=== PATIENT | female | born 2005 | race Two or more races ===

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

== ENCOUNTER 2024-06-19 23:26 | Emergency (ER) | payer OTHER | END 2024-06-20 00:02 | disposition home or self-care (01) | LOC: ERS 23:26 | DX: O99.891 Other specified diseases and conditions complicating pregnancy (principal); R10.9 Unspecified abdominal pain; O24.419 Gestational diabetes mellitus in pregnancy, unspecified control; W01.0XXA Fall on same level from slipping, tripping and stumbling without subsequent striking against object, initial encounter; Z3A.32 32 weeks gestation of pregnancy | CPT/HCPCS: 99283 ==

== ENCOUNTER 2024-07-28 09:20 | Day surgery (SDC) | payer OTHER ==
[~2024-07-28 09:20] MED LIST: Acetaminophen 500 MG TAB PO SCH; Ferumoxytol (NON ERSD) 510 MG in 0.9 % Sodium Chloride 150 ML IVPB SCH
[2024-07-28] MEDS ORDERED: Acetaminophen 500 MG TAB ONE (09:35)
[2024-07-28] MEDS: Acetaminophen 500 MG TAB PO SCH (09:46)
[2024-07-28] MEDS: Ferumoxytol (NON ERSD) 510 MG in 0.9 % Sodium Chloride 150 ML IVPB SCH (10:09)
[2024-07-28 13:34] VITALS: BP 116/69; TEMP 98.2
== END 2024-07-28 14:53 | disposition home or self-care (01) ==
LOC: ONC/OP 09:20
PROVIDERS: ATTEND Family Medicine
DX: O99.019 Anemia complicating pregnancy, unspecified trimester (principal); Z3A.00 Weeks of gestation of pregnancy not specified
CPT/HCPCS: 96365; 96366; Q0138

== ENCOUNTER 2025-08-31 16:38 | Emergency (ER) | payer OTHER, SELFPAY ==
[2025-08-31 17:41] LABS: #Basophils 0.03 10x3/uL (0.0-0.2); #Eosinophils 0.11 10x3/uL (0.0-0.7); #Monocytes 0.45 10x3/uL (0.11-0.59); #Neutrophils 5.95 10x3/uL (1.40-6.50); %Basophils 0.3 % (0.0-1.0); %Eosinophils 1.2 % (0.0-10.0); %Lymphocytes 27.5 % (21.0-51.0); %Monocytes 5.0 % (0.0-10.0); %Neutrophils 65.7 % (42.0-75.0); Hematocrit 43.2 % (36.0-47.0); Hemoglobin 13.1 g/dL (12.0-16.0); Mean Corpuscular Hemoglobin 26.3 pg (27.0-31.0); Mean Corpuscular Volume 86.6 fL (78.0-98.0); Platelet Count 318 10x3/uL (130-400); Red Blood Cell (RBC) Count 4.99 mill/uL (4.20-5.40); White Blood Cell (WBC) Count 9.06 10x3/uL (4.8-10.8)
[2025-08-31 17:57] LABS: ALT (SGPT) 12 U/L (Less than 34); AST (SGOT) 17 U/L (11-34); Albumin 4.1 g/dL (3.1-4.5); Alkaline Phosphatase 74 U/L (40-110); Anion Gap 12 mmol/L (10-20); BUN (Urea Nitrogen) 10 mg/dL (7.0-18.7); Bilirubin, Total 0.4 mg/dL (0.3-1.2); Calc. Creatinine Clearance 0 mL/min (70-130); Calcium 9.6 mg/dL (7.8-10.44); Carbon Dioxide 26 mmol/L (22-29); Chloride 106 mmol/L (98-107); Globulin 3.9 g/dL (2.4-3.5); Glucose 95 mg/dL (70-105); Potassium 4.1 mmol/L (3.5-5.1); Sodium 140 mmol/L (136-145)
[2025-08-31 18:12] LABS: Bacteria/HPF None Seen HPF (None Seen); CAUTI Indications for Culture Fever or rigors; Glucose, Urine (Dipstick) Normal (Negative); Leukocyte Negative Leu/uL (Negative); Protein, Urine (Dipstick) 10 mg/dL (Neg-Trace); RBC/HPF 0-3 HPF (0-3); Specific Gravity, Urine 1.030 (1.002-1.036); WBC/HPF 0-3 HPF (0-3)
[2025-08-31 18:13] LABS: Urine Culture Reflex No No
[2025-08-31] MEDS ORDERED: Benzonatate 100 MG CAP ONE (18:13)
[2025-08-31] MEDS ORDERED: diphenhydrAMINE 50 MG/ML VIAL ONE (18:42)
== END 2025-08-31 19:22 | disposition home or self-care (01) ==
LOC: ERS 16:38
DX: J20.9 Acute bronchitis, unspecified (principal)
CPT/HCPCS: 36415; 71045; 80053; 81001; 85025; 87428; 96374; J1200